=== PATIENT | female | born 1950 | race American Indian/Alaskan Native ===

== ENCOUNTER 2016-08-05 08:42 | Outpatient (CLI) | payer MEDICARE ==
--- NOTE | 2016-08-05 10:11 | Ultrasound Report ---
RIGHT DIGITAL DIAGNOSTIC MAMMOGRAM and RIGHT BREAST ULTRASOUND: 08/05/16 08:42:00 CLINICAL: Recalled for asymmetry. COMPARISON:07/13/16 screening FINDINGS: Spot compression right nipple views were performed and demonstrate an oval circumscribed periareolar mass at 3 o'clock measuring 1.2 cm. Ultrasound of the right breast was performed and demonstrated an oval smooth heterogeneous solid hypoechoic mass versus complex cyst at 3 o'clock near the nipple. It measures 1.0 x 0.5 x 1.1 cm. IMPRESSION: A 1.1 cm complex cyst versus solid mass at 3 o'clock near the nipple. BI-RADS CATEGORY: 4--Suspicious RECOMMENDATION: Ultrasound guided needle aspiration and ultrasound guided needle core biopsy if it is determined to be solid with attempted aspiration. I discussed the findings and the recommendation for ultrasound guided needle aspiration/core biopsy with the patient at the time of the examination. ACR BI-RADS MAMMOGRAPHIC CODES: 0 = Needs additional imaging evaluation; 1 = Negative; 2 = Benign; 3 = Probably benign; 4 = Suspicious; 5 = Malignant; 6 = Known biopsy-proven malignancy COMMENT: 1. Dense breast tissue, i.e., adenosis, fibrocystic changes, etc., may obscure an underlying neoplasm. 2. Approximately 10% of cancers are not detected with mammography. 3. A negative mammography report should not delay biopsy if a clinically suspicious mass is present. COMMENT: Patient follow-up letters are generated via our [employer] application.
== END 2016-08-05 08:43 | disposition home or self-care (01) ==
LOC: SPVWC 08:42
PROVIDERS: ATTEND Internal Medicine
DX: N60.01 Solitary cyst of right breast (principal); N64.89 Other specified disorders of breast
CPT/HCPCS: 76641; G0206

== ENCOUNTER 2016-08-06 08:52 | Outpatient (CLI) | payer MEDICARE ==
--- NOTE | 2016-08-06 10:35 | Mammography Report ---
RIGHT DIGITAL DIAGNOSTIC MAMMOGRAM: 08/06/16 08:52:00 CLINICAL: For clip placement immediately status post ultrasound guided aspiration and biopsy. COMPARISON:08/05/16 FINDINGS: A biopsy clip is now identified within the mass at 3 o'clock near the nipple. IMPRESSION: Concordant clip placement status post ultrasound biopsy. BI-RADS CATEGORY: 4--Suspicious Pathology pending.
--- NOTE | 2016-08-06 11:19 | Ultrasound Report ---
ULTRASOUND GUIDED NEEDLE CORE ASPIRATION AND BIOPSY RIGHT BREAST WITH CLIP PLACEMENT: 08/06/16 CLINICAL: Complex cyst versus solid mass at 3 o'clock near the nipple. COMPARISON :08/05/16 right breast ultrasound. FINDINGS: The procedure was explained to the patient and informed consent was obtained. Ultrasound demonstrated the present described lesion. I marked the breast with a felt tip marker and a time out was called. The skin was prepped with Betadine and anesthetized with 1% lidocaine. A 20-gauge needle was inserted into the lesion and a very small mild fluid was aspirated from the center. The fluid was placed in Cytolyte and sent to the lab. Since the wall of the cyst appeared quite thick and minimal fluid was aspirated, a needle core biopsy was performed through a tiny dermatotomy using ultrasound guidance, 2% lidocaine with epinephrine for deep anesthesia and a 14-gauge Achieve biopsy device. Three cores were obtained and placed in formalin. A hydro-heidi clip was then placed within the lesion. The patient tolerated the procedure well and there were no apparent complications. Hemostasis was achieved with gentle pressure and a sterile dressing was applied. A two view mammogram demonstrated satisfactory placement of the clip within the mass. She left the department in good condition and was given instructions for wound care and followup. IMPRESSION: Uncomplicated ultrasound guided needle aspiration and core biopsy with clip placement right breast.
== END 2016-08-06 08:53 | disposition home or self-care (01) ==
LOC: SPVWC 08:52
PROVIDERS: ATTEND Internal Medicine
DX: N60.01 Solitary cyst of right breast (principal)
CPT/HCPCS: 19083; 88112; 88305; 88342; A4648; G0206

== ENCOUNTER 2018-01-06 08:52 | Outpatient (CLI) | payer MEDICARE ==
--- NOTE | 2018-01-07 09:07 | Mammography Report ---
BILATERAL MAMMOGRAM: FINDINGS: The breasts are almost entirely fat (<25% glandular). No mass, distortion, suspicious calcification, or skin change is seen. No significant change when compared to her prior screening exam in July 2016. The interval biopsied right nodule containing a marker remains unchanged in size and contour. CAD was utilized. IMPRESSION: Negative mammogram. There is no mammographic evidence of malignancy. RECOMMENDATION: Follow-up per ACS guidelines. BI-RADS CATEGORY: 1 = Negative ACR BI-RADS MAMMOGRAPHIC CODES: 0 = Needs additional imaging evaluation; 1 = Negative; 2 = Benign; 3 = Probably benign; 4 = Suspicious; 5 = Malignant; 6 = Known biopsy-proven malignancy COMMENT: 1. Dense breast tissue, i.e., adenosis, fibrocystic changes, etc., may obscure an underlying neoplasm. 2. Approximately 10% of cancers are not detected with mammography. 3. A negative mammography report should not delay biopsy if a clinically suspicious mass is present. COMMENT: Patient follow-up letters are generated in [employer].
== END 2018-01-06 08:53 | disposition home or self-care (01) ==
LOC: SPVWC 08:52
PROVIDERS: ATTEND Internal Medicine
DX: Z12.31 Encounter for screening mammogram for malignant neoplasm of breast (principal)
CPT/HCPCS: 77067

== ENCOUNTER 2019-01-10 09:41 | Outpatient (CLI) | payer MEDICARE ==
--- NOTE | 2019-01-11 08:50 | Mammography Report ---
BILATERAL DIGITAL SCREENING MAMMOGRAM WITH CAD INDICATION: Routine screening mammography. Previous right benign biopsy. TECHNIQUE: Digital bilateral 2D mammography was obtained in the craniocaudal and mediolateral obliq ue projections. This examination was interpreted with the benefit of Computer-Aided Detection analysi s. COMPARISON: 01/06/2018 FINDINGS: Breast Density: There are scattered areas of fibroglandular density. No new mass, architectural distortion or suspicious calcifications. Stable oval circumscribed right p eriareolar nodule with a biopsy clip. IMPRESSION:No mammographic evidence of malignancy. BI-RADS Category 2: Benign. No mammographic evidence of malignancy. Recommend routine screening ma mmography in one year. A "normal" or negative report should not discourage follow up or biopsy of a clinically significant f inding. A written summary of these findings will be mailed to the patient. The patient will be entered into a mammography reporting system which will generate a reminder letter for the patient's next appointmen t at the appropriate interval. The [employer] recommends yearly mammograms starting at age 40 and continuing as l gerardo as a woman is in good health. Breast MRI is recommended for women with an approximate 20-25% or greater lifetime risk of breast cancer, including women with a strong family history of breast or ova suzette cancer or who have been treated for Hodgkin's disease. Signer Name: Chase Silva MD Signed: 01/11/2019 8:45 AM Workstation Name: [id number]
== END 2019-01-10 09:42 | disposition home or self-care (01) ==
LOC: SPVWC 09:41
PROVIDERS: ATTEND Internal Medicine
DX: Z12.31 Encounter for screening mammogram for malignant neoplasm of breast (principal)
CPT/HCPCS: 77067